=== PATIENT | female | born 1985 | race Caucasian/White ===

== ENCOUNTER 2019-09-11 12:54 | Emergency (ER) | payer OTHER ==
[~2019-09-11] VITALS: Ht 165.1 cm; Wt 77.3 kg
[2019-09-11 12:56] VITALS: Ht 165.1 cm; Wt 77.3 kg
[2019-09-11 13:23] LABS: BILIRUBIN NEGATIVE (NEGATIVE); GLUCOSE NEGATIVE (NEGATIVE); KETONE NEGATIVE (NEGATIVE); NITRITE NEGATIVE (NEGATIVE); SPECIFIC GRAVITY 1.015 (1.005-1.020); UROBILINOGEN NORMAL (NORMAL)
[2019-09-11 13:24] LABS: BACTERIA FEW /hpf (NEGATIVE); EPITHELIAL CELLS 0-5 /hpf (0-5); RED CELLS - URINE 0-5 /hpf (0-5); WHITE CELLS - URINE 0-5 /hpf (NEGATIVE)
[2019-09-11 13:29] LABS: BASOPHILS 0.2 % (0-2); HEMATOCRIT 37.6 % (36.0-48.0); HEMOGLOBIN 12.4 g/dL (12-16); IMMATURE GRANULOCYTES 0.2 % (0-5); MCH 29.2 pg (26.0-34.0); MCV 88.7 fL (80.0-100.0); MEAN PLATELET VOLUME 9.3 fL (7.4-10.4); MONOCYTES 5.4 % (2-11); NEUTROPHILS 72.2 % (40-80); RBC 4.24 10x6/uL (4.00-5.40); RDW 12.6 % (11.5-14.5); WBC 8.9 10x3/uL (4.8-10.8)
[2019-09-11 13:31] LABS: PLATELET COUNT 288 10x3/uL (130-400)
[2019-09-11 13:33] LABS: HCG SERUM POSITIVE (NEGATIVE)
[2019-09-11 13:36] LABS: CALC OSMOLALITY 264 mosm/kg (275-300); CALCIUM 9.2 mg/dL (8.5-10.1); CARBON DIOXIDE 24.7 mmol/L (21.0-32.0); CHLORIDE - SERUM 99 mmol/L (98-107); CREATININE - SERUM 0.6 mg/dL (0.6-1.3); GLUCOSE 90 mg/dL (74-106); POTASSIUM - SERUM 3.9 mmol/L (3.5-5.1); SODIUM 133 mmol/L (136-145); UREA NITROGEN 11 mg/dL (7-18); eGFR NON AFRICAN AMERICAN > 90 mL/min (90-120)
[2019-09-11 14:04] LABS: ALBUMIN 3.6 g/dL (3.4-5.0); ALKALINE PHOSPHATASE 47 U/L (30-120); ALT (SGPT) 17 U/L (10-68); BILIRUBIN - TOTAL 0.27 mg/dL (0.2-1.3); HCG - QUANTITATIVE (MATERNAL) 149653 mIU/mL; PROTEIN - SERUM 7.3 g/dL (6.4-8.2)
[2019-09-11 15:35] VITALS: BP 115/68
== END 2019-09-11 15:36 | disposition home or self-care (01) ==
LOC: D.ER 12:54
PROVIDERS: Emergency Medicine
DX: O20.9 Hemorrhage in early pregnancy, unspecified (principal); Z3A.00 Weeks of gestation of pregnancy not specified; E87.1 Hypo-osmolality and hyponatremia

== ENCOUNTER 2019-09-14 06:18 | Day surgery (SDC) | payer OTHER ==
[2019-09-11 12:56] VITALS: Ht 165.1 cm; Wt 77.1 kg
[~2019-09-14] VITALS: Ht 165.1 cm; Wt 77.1 kg
[2019-09-14] VITALS (10 sets, daily range): BP systolic 91–113; BP diastolic 37–60
--- NOTE | ~2019-09-14 | OP ---
PATIENT NAME: GEN CAZARES MEDICAL RECORD: [id number] :83 LOCATION:D[facility] ADMISSION DATE: SURGEON: ENRIQUE CORNELL MD DATE OF OPERATION: 09/14/2019 PREOPERATIVE DIAGNOSIS: Missed . POSTOPERATIVE DIAGNOSIS: Inevitable . PROCEDURE PERFORMED: 1. Dilation and evacuation with curettage. 2. Uterine packing. SURGEON: Enrique Cornell MD POT FIRER: Leticia Springer. ANESTHESIOLOGIST: Dr. Briggs. ANESTHESIA: General. FINDINGS: Upon inserting speculum, products of conceptions is identified at the external os. There is copious amounts of products of conception with foul smell. The uterus with atony immediately following procedure. SPECIMEN REMOVED: Products of conception. SPECIMEN DISPOSITION: Pathology. ESTIMATED BLOOD LOSS: 800 cc. FLUIDS: 2 liters lactated Ringer's. URINE OUTPUT: Quantity sufficient void prior to this procedure. COMPLICATIONS: Intraoperative hemorrhage with uterine atony. MEDICATIONS ADMINISTERED: Cytotec, Hemabate, Methergine. DRAINS: Christianson to gravity. INDICATIONS: The patient is a 34-year-old female with a known recent history of missed . The patient has been evaluated and consented for a dilation and evacuation. DESCRIPTION OF PROCEDURE: After informed consent was assured, the patient was taken to the operating room where anesthetic was obtained. The patient was placed in Yellofin stirrups and prepped and draped in the usual sterile fashion. An operative speculum was introduced in the vagina and products of conception was visualized at the external os. This was removed with ring forceps. Bimanual exam reveals a uterus approximately 9-week size. A #8 curved suction curette was now inserted and suction activated. Moderate to copious amounts of products of conception returned. The patient begins to have active bleeding that was continuous. Aggressive fundal massage fails to cause the uterus to involute. Methergine was given 0.2 mg times 2 at 15-minute intervals without OPERATIVE REPORT [id number] GEN CAZARES result. A 600 mcg of Cytotec was placed per rectum and eventually 1 ampule of Hemabate was injected directly into the myometrium without effect. At this point, with continued bleeding, the decision was made for uterine packing. Three 2 inch x 6 feet Kerlix gauze was now inserted into the uterus with good effect. The patient has Christianson catheter started and was awakened and went to the recovery area in stable condition. The patient has been typed and crossed and 2 units were held. She will be observed on women services from the day and with possible admission overnight. TRANSINT:[id number] Voice Confirmation ID: [id number] DOCUMENT ID: [id number] ENRIQUE CORNELL MD CC: [id number] DICTATION DATE: 09/16/19818 TRANSITION ASSISTANT: 09/16/19 1208 [facility] [place] 09/15/19 [place] [id number] [place] [id number]
--- NOTE | 2019-09-14 09:12 | NUR ---
600MG MISOPROSTATIN TO FIELD 250MG HEMABATE
--- NOTE | 2019-09-14 11:05 | NUR ---
PT RECEIVED FROM LOCK TENDER CHIEF OPERATOR ZAIDA VIA BED TO ROOM 1218. PT TRANSFERS SELF FROM BED TO BED. VSS. IV FLUIDS INFUSING ORDERED TO LEFT FOREARM PIV. PT RATES PAIN APPROX 6/10, SABINA CERDA ADMIN DILAUDID PER ORDER AND STATES HE WILL CHART IT. ABD SOFT. SMALL BRIGHT RED VAGINAL BLEEDING NOTED TO PERIPAD, PERIPAD CHANGED TO MONITOR. ARIAS CATH DRAINING SMALL AMOUNT DARK YELLOW URINE TO BEDSIDE DRAINAGE, APPROX 45ML EMPTIED FROM UROMETER. TUBING SECURED VIA STAT LOCK TO INNER RIGHT THIGH. SCD'S ON LE BILAT AND PLACED ON PUMP. POC DISCUSSED WITH PT. PT REPORTS MILD NAUSEA, EMESIS BAG GIVEN. SRUx2, CL IN REACH. WILL CONT TO MONITOR.
--- NOTE | 2019-09-14 11:30 | NUR ---
DR CORNELL PHONED AND NOTIFIED PT IS VOMITING AND ZOFRAN HAS ALREADY BEEN GIVEN x2 IN O.R. AND PACU. ORDER RECEIVED FOR PHENERGAN 25MG IM Q6HPRN N/V, AND ADMIN 200MCG DOSE CYTOTEC PO NOW.
--- NOTE | 2019-09-14 12:45 | NUR ---
DR CORNELL PHONES UNIT AND UPDATE GIVEN ON PT STATUS AND SCANT VAGINAL BLEEDING. ORDER RECEIVED TO PULL FIRST THIRD/SECTION OF CURLEX GAUZE PACKING NOW, AND MONITOR PAD FOR VAGINAL BLEEDING FOR 1 HOUR. STATES WILL CALL UNIT AT APPROX 1400 FOR UPDATE AND IF PT DOING WELL, MAY ADVANCE DIET. WILL PROCEED ORDERED.
--- NOTE | 2019-09-14 13:00 | NUR ---
FIRST SECTION OF VAG PACKING PULLED ORDERED, NOTED TO BE SATURATED IN BRIGHT RED BLOOD. NO OOZING OF VAGINAL BLEEDING NOTED. NEW PERIPAD PLACED TO MONITOR. POC DISCUSSED WITH PT AND SIG OTHER, UNDERSTANDING VERBALIZED. WILL CONT TO MONITOR.
--- NOTE | 2019-09-14 14:15 | NUR ---
THIS RN TO ROOM FOR PAD CHECK, APPROX HALF DOLLAR SIZED AMOUNT OF BRIGHT RED BLEEDING NOTED ON PERIPAD WHERE GAUZE TAIL IS TOUCHING. NO FLOW OR OOZING OF VAGINAL BLEEDING SEEN. WILL NOTIFY .
--- NOTE | 2019-09-14 14:20 | NUR ---
DR CORNELL PHONES UNIT FOR UPDATE ON PT. REPORT GIVEN ON HALF-DOLLAR SIZED AREA OF PERIPAD HAVING BRIGHT RED BLEEDING, WHERE TAIL OF CURLEX WAS TOUCHING. ORDER RECEIVED TO PULL ANOTHER THIRD OF CURLEX GAUZE PACKED AND TRIM WITH TAIL LEFT AGAIN, AND CONTINUE TO MONITOR BLEEDING. ORDER ALSO RECEIVED FOR REG DIET AND CBC AT 1500. STATES HE WILL PLACE ORDERS FOR ZOSYN NOW.
--- NOTE | 2019-09-14 15:00 | NUR ---
SECOND SECTION OF CURLEX PACKING REMOVED, SCANT VAGINAL BLEEDING NOTED TO PERIPAD. PT RATES PAIN 3/10, DENIES NAUSEA. PT GIVEN SPRITE, CRACKERS, AND JELLO PER REG DIET AND ENCOURAGED TO EAT SLOWLY. DR CORNELL NOTIFIED OF URINE OUTPUT OF APPROX 45ML Q2H. ORDER RECEIVE TO PUSH PO FLUIDS ALONG WITH IV MAINTNANCE FLUIDS, AND WILL AWAIT CBC RESULTS.
--- NOTE | 2019-09-14 15:39 | NUR ---
LAB NOTIFIED ON UNIT AWAITING CBC RESULTS.
--- NOTE | 2019-09-14 15:39 | NUR ---
DR CORNELL TO PT BEDSIDE DISCUSSING POC WITH PT. WILL CONT TO MONITOR ORDERED.
--- NOTE | 2019-09-14 15:45 | NUR ---
DR CORNELL ORDERS FOR THIS RN TO PULL LAST SECTION OF CURLEX PACKING DUE TO NO INCREASE IN VAGINAL BLEEDING WHEN PAD CHECKED. LAST SECTION OF PACKING REMOVED, NEW PERIPAD PLACED TO MONITOR. DR CORNELL ORDERS TO NOTIFY HIM OF CBC WHEN RESULTED. WILL CONT TO MONITOR.
--- NOTE | 2019-09-14 15:59 | NUR ---
PT REPORTS WORSENING CRAMPING AFTER FINAL GAUZE REMOVAL, VOMITING AND REQUESTING PAIN MEDICATION. ZOFRAN AND DILAUDID ADMIN PER ORDER, SEE EMAR FOR DOC. PERIPAD CHECKED AND ONLY SCANT SMEAR BLEEDING NOTED. WILL CONT TO MONITOR.
[2019-09-14 16:20] LABS: BASOPHILS 0 % (0-2); EOSINOPHILS 0 % (0-7); HEMATOCRIT 32.5 % (36.0-48.0); HEMOGLOBIN 10.9 g/dL (12-16); IMMATURE GRANULOCYTES 0.3 % (0-5); LYMPHOCYTES 5.5 % (15-50); MCH 28.9 pg (26.0-34.0); MCHC 33.5 g/dL (31.0-37.0); MCV 86.2 fL (80.0-100.0); MEAN PLATELET VOLUME 9.3 fL (7.4-10.4); MONOCYTES 0.7 % (2-11); NEUTROPHILS 93.5 % (40-80); PLATELET COUNT 245 10x3/uL (130-400); RBC 3.77 10x6/uL (4.00-5.40); RDW 12.5 % (11.5-14.5); WBC 10.6 10x3/uL (4.8-10.8)
--- NOTE | 2019-09-14 16:25 | NUR ---
THIS RN TO ROOM FOR PAIN REASSESSMENT AND PT CHECK. PT SLEEPING ON RIGHT SIDE, ROUSES TO VOICE. REPORTS FEELING MUCH BETTER AND DENIES NAUSEA. 25ML URINE OUTPUT NOTED IN UROMETER, WILL NOTIFY MD. PERIPAD CHECKED AND ONLY NOTED TO HAVE SCANT SMEAR OF VAGINAL BLEEDING. WILL CONT TO MONITOR.
--- NOTE | 2019-09-14 16:36 | NUR ---
DR CORNELL NOTIFIED OF DECREASED URINE OUTPUT OF 25ML AT 1630. ORDER RECEIVED FOR 1L BOLUS LR x1 NOW. WILL PROCEED ORDERED.
--- NOTE | 2019-09-14 16:43 | NUR ---
LR BOLUS HUNG ORDERED, SEE EMAR FOR DOC. PT SITTING UP IN BED, EATING REGULAR DINNER TRAY. DENIES NAUSEA, STATES SHE'S FEELING MUCH BETTER. WILL CONT TO MONITOR.
--- NOTE | 2019-09-14 17:15 | NUR ---
DR CORNELL PHONES UNIT, UPDATE GIVEN ON PT. ORDER RECEIVED TO MONITOR URINE OUTPUT AFTER BOLUS, AND IF IT INCREASES, PULL ARIAS CATHETER AND ALLOW PT TO GET UP TO BR TO VOID. WILL PROCEEDS ORDERED.
--- NOTE | 2019-09-14 17:48 | NUR ---
PIV FLUID BOLUS COMPLETED. D5LR UP AT 125 ML/HR. PIV SITE CLEAR.
--- NOTE | 2019-09-14 17:50 | NUR ---
PAD CHECKED, NO CHANGE NOTED, SCANT SMEAR OF BRIGHT RED VAGINAL BLEEING. URINE OUTPUT NOTED TO BE INCREASING, 30ML NOTED IN PAST 30 MIN, MORE CLEAR IN COLOR. WILL PULL ARIAS CATH PER ORDER WHEN PT FINISHED EATING DINNER.
--- NOTE | 2019-09-14 18:09 | NUR ---
DR CORNELL GIVES ORDER TO CHANGE PT TO ORAL PAIN MEDS AND D/C CYTOTEC. WILL PROCEED ORDERED.
--- NOTE | 2019-09-14 19:30 | NUR ---
REPORT GIVEN BY SABINA FAROOQ
--- NOTE | 2019-09-14 20:00 | NUR ---
IN ROOM FOR VS. PT IS DOING WELL. NO C/O AT THIS TIME. HEART SOUNDS ARE NORMAL, LUNGS CLEAR, ABD SOFT AND A LITTLE TENDER. IV FLUIDS RUNNING AT 125ML/HR IN HER LEFT FOREARM. SITE LOOKS GOOD. BLEEDING SMALL.
--- NOTE | 2019-09-14 21:00 | NUR ---
PT DOING WELL NO C/O AT THIS TIME.
[2019-09-15] VITALS: BP 90/32
--- NOTE | 2019-09-15 02:00 | NUR ---
PT RESTING WITH HER EYES CLOSED. AT BEDSIDE.
[2019-09-15 04:00] VITALS: BP 88/38
--- NOTE | 2019-09-15 04:00 | NUR ---
PT IS DOING WELL. UP TO BR. BLEEDING SCANT. IV FLUIDS AT 100ML/HR. ASLEEP AT BEDSIDE.
--- NOTE | 2019-09-15 05:57 | NUR ---
PT RESTING QUIETLY IN BED.
--- NOTE | 2019-09-15 08:41 | NUR ---
VOIDED 500 MLS CLEAR LIGHT YELLOW URINE IN HAT. SHIFT ASSESSMENT COMPLETED PER FLOWSHEET. DENIES PAIN AND NEEDS AT THIS TIME. POC DISCUSSED, VERBALIZES UNDERSTANDING DENIES.
--- NOTE | 2019-09-15 09:14 | NUR ---
DR. CORNELL ON UNIT, ORDERS REC'D TO D/C ZOSYN. PER DR. CORNELL HE WILL PUT ORDERS IN.
--- NOTE | 2019-09-15 10:00 | NUR ---
DR CORNELL CALLS UNIT AND REQUESTS THAT NURSE INFORM PT OF HGB AND HCT. DR CORNELL STATES THAT HE HAS PUT IN DISCHARGE ORDERS.
--- NOTE | 2019-09-15 10:12 | NUR ---
INFORMED PT OF YESTERDAYS H&H -PT STATES THAT SHE IS READY TO GO HOME. FAMILY AT BEDSIDE.
[2019-09-15] MEDS ORDERED: HYDROCODON-ACE1 EAC7 PO (10:32)
[2019-09-15] MEDS ORDERED: CLEOCIN HCL300 MG PO (10:33)
[2019-09-15] MEDS ORDERED: CYTOTEC200 MCG PO (10:34)
--- NOTE | 2019-09-15 10:45 | NUR ---
IV SALINE LOCK D/MOUSTAPHA. CATH TIP INTACT- PRESSURE HELD AND BANDAIDE APPLIED.
--- NOTE | 2019-09-15 10:56 | NUR ---
DISCHARGE INST VERBAL AND WRITTEN GIVEN. SCRIPTS X3, PT MED REC, AND DRUG DATA SHEETS GIVEN. PT HEALTH SUMMARY GIVEN. SEE ALSO SIGNED INSTRUCTION SHEET FOR OTHER INSTRUCTIONS GIVEN. PT DENIES QUESTIONS. STATES SHE WANTS TO AMBULATE OFF UNIT. FAMILY AT SIDE.
--- NOTE | 2019-09-15 10:59 | NUR ---
AMBULATORY OFF UNIT WITH FAMILY. STABLE
== END 2019-09-15 11:03 | disposition home or self-care (01) ==
LOC: D.OPS 06:18 → D.WS 10:37 → D.OPS 09-15 11:03
PROVIDERS: ATTEND Obstetrics & Gynecology
DX: O02.1 Missed abortion (principal); O03.9 Complete or unspecified spontaneous abortion without complication